=== PATIENT | male | born 1995 | race American Indian/Alaskan Native ===

== ENCOUNTER 2017-04-03 11:40 | Inpatient (IN) | payer OTHER ==
[2017-04-03 12:17] LABS: Basophils % (Auto) 0.3 % (0.0-1.8); Eosinophils % (Auto) 0.2 % (0.0-4.3); Hematocrit 51.1 % (35.5-45.6); Hemoglobin 17.3 gm/dl (11.8-15.2); Mean Corpuscular HGB Conc 34 % (32-34); Mean Corpuscular Hemoglobin 30 pg (28-32); Mean Corpuscular Volume 87 fl (84-94); Platelet Count 200 K/mm3 (140-440); Red Blood Count 5.86 M/mm3 (3.65-5.03); Red Cell Distribution Width 13.2 % (13.2-15.2); White Blood Count 8.7 K/mm3 (4.5-11.0)
--- NOTE | 2017-04-03 12:28 | XRay Report ---
Chest 2 views: History: Shortness of breath. Findings: Normal cardiomediastinal silhouette paratracheal midline. No consolidation, pneumothorax or pleural effusion. Impression: No acute cardiopulmonary findings.
--- NOTE | 2017-04-03 12:35 | Emergency Department Report ---
ED Chest Pain HPI - General Chief Complaint: Chest Pain Stated Complaint: CHEST PAIN/SOB Time Seen by Provider: 04/03/17 12:33 Source: patient Mode of arrival: Ambulatory Limitations: No Limitations - History of Present Illness Initial Comments: Patient states contrary to what is written in the triage note that he smoked a vapor one week ago. He was fine for the subsequent 4 days. 3 days ago he developed intermittent chest discomfort which she described as a pressure and shortness of breath. He denied cough or fever. He denies any chronic dyspnea on exertion. He's had no prior mention of a heart murmur nor any known medical history. He does smoke cigarettes. His mother presents with him stating that he has an uncle that had a myocardial infarction. The patient at this time states he has some slight chest pressure but no lisette shortness of breath at rest. He also states that he feels as if he needs to burp. He said some problems with insomnia for the last few days. Does not report lisette anxiety. MD Complaint: chest pain -: days(s) Onset: during rest Pain Location: substernal, left chest Pain Radiation: none Severity: mild, moderate Quality: pressure Context: other (no recent travel or surgical procedure) re: dyspnea. denies: nausea, vomting, diaphoresis, sense of impending doom Other Symptoms: denies: cough, fever, syncope Treatments Prior to Arrival: none Aspirin use within the Past 7 Days: (0) No - Related Data Allergies Allergy/AdvReac Type Severity Reaction Status Date / Time No Known Allergies Allergy Unverified 04/03/17 11:55 Heart Score - HEART Score History: Slightly suspicious EKG: Non-specific Age: < 45 Risk factors: No known risk factors Troponin: < normal limit HEART Score: 1 - Critical Actions Critical Actions: 0-3 pts:0.9-1.7%risk of adverse cardiac event.Candidate for discharge ED Review of Systems ROS: Stated complaint: CHEST PAIN/SOB Other details as noted in HPI Constitutional: denies: chills, fever Eyes: denies: eye pain, eye discharge, vision change ENT: denies: ear pain, throat pain Respiratory: shortness of breath. denies: cough, wheezing Cardiovascular: denies: chest pain, palpitations Endocrine: no symptoms reported Gastrointestinal: denies: abdominal pain, nausea, diarrhea Genitourinary: denies: urgency, dysuria Musculoskeletal: denies: back pain, joint swelling, arthralgia Skin: denies: rash, lesions Neurological: denies: headache, weakness, paresthesias Psychiatric: denies: anxiety, depression Hematological/Lymphatic: denies: easy bleeding, easy bruising ED Past Medical Hx - Past Medical History Previous Medical History?: No - Surgical History Past Surgical History?: No - Social History Smoking Status: Current Some Day Smoker Substance Use Type: None ED Physical Exam - General Limitations: No Limitations General appearance: alert, in no apparent distress - Head Head exam: Present: atraumatic, normocephalic - Eye Eye exam: Present: normal appearance, PERRL, EOMI. Absent: scleral icterus - ENT ENT exam: Present: mucous membranes moist - Neck Neck exam: Present: normal inspection - Respiratory Respiratory exam: Present: normal lung sounds bilaterally. Absent: respiratory distress - Cardiovascular Cardiovascular Exam: Present: regular rate, normal rhythm. Absent: systolic murmur, diastolic murmur, rubs, gallop - GI/Abdominal GI/Abdominal exam: Present: soft, normal bowel sounds. Absent: distended, tenderness, guarding, rebound, rigid - Rectal Rectal exam: Present: deferred - Extremities Exam Extremities exam: Present: normal inspection, full ROM, normal capillary refill. Absent: tenderness, pedal edema, joint swelling, calf tenderness - Back Exam Back exam: Present: normal inspection - Neurological Exam Neurological exam: Present: alert, oriented X3, CN II-XII intact. Absent: motor sensory deficit - Psychiatric Psychiatric exam: Present: normal affect, normal mood - Skin Skin exam: Present: warm, dry, intact, normal color. Absent: rash ED Course Vital Signs 04/03/17 04/03/17 11:56 11:59 Temperature 98.4 F Pulse Rate 84 89 Respiratory 20 Rate Blood Pressure 150/101 O2 Sat by Pulse 100 Oximetry - Reevaluation(s) Reevaluation #1: Laboratory Results - last 24 hr 04/03/17 04/03/17 04/03/17 12:01 12:01 12:48 WBC 8.7 RBC 5.86 H Hgb 17.3 H Hct 51.1 H MCV 87 MCH 30 MCHC 34 RDW 13.2 Plt Count 200 Lymph % (Auto) 19.6 [place] % (Auto) 10.0 H Eos % (Auto) 0.2 Baso % (Auto) 0.3 Lymph # 1.7 [place] # 0.9 H Eos # 0.0 Baso # 0.0 Seg Neutrophils % 69.9 Seg Neutrophils # 6.1 PT 14.3 INR 1.12 APTT 34.6 Sodium 142 Potassium 3.4 L Chloride 98.1 Carbon Dioxide 28 Anion Gap 19 BUN 6 L Creatinine 0.9 Estimated GFR > 60 BUN/Creatinine Ratio 6.66 Glucose 94 Calcium 10.0 Troponin T < 0.010 04/03/17 13:26 Reevaluation #2: Radiologist questions apical scarring versus early pneumonia. It does not appear that the patient clinically has pneumonia. His first blood pressure was elevated but other readings were within the normal range. It seemed like the patient would benefit from further evaluation to include an echocardiogram. Therefore I spoke with Dr. Lara who has decided to admit the patient for further care and evaluation. 04/03/17 17:21 GALEN score - Galen Score Age > 65: (0) No Aspirin use within the Past 7 Days: (0) No 3 or more CAD Risk Factors: (0) No 2 or more Angina events in past 24 hrs: (0) No Known CAD with more than 50% Stenosis: (0) No Elevated Cardiac Markers: (0) No ST Deviation Greater than 0.5mm: (0) No GALEN Score: 0 ED Medical Decision Making - Lab Data Result diagrams: 04/03/17 12:01 04/03/17 12:01 Laboratory Results - last 24 hr 04/03/17 12:01 WBC 8.7 RBC 5.86 H Hgb 17.3 H Hct 51.1 H MCV 87 MCH 30 MCHC 34 RDW 13.2 Plt Count 200 Lymph % (Auto) 19.6 [place] % (Auto) 10.0 H Eos % (Auto) 0.2 Baso % (Auto) 0.3 Lymph # 1.7 [place] # 0.9 H Eos # 0.0 Baso # 0.0 Seg Neutrophils % 69.9 Seg Neutrophils # 6.1 - EKG Data -: EKG Interpreted by Me EKG shows normal: sinus rhythm Rate: normal - EKG Data Interpretation: other (biatrial enlargement pulmonary disease pattern RSR in V1. Biatrial enlargement. Inferior T-wave abnormality. Nonspecific.) - Radiology Data Radiology results: report reviewed interpreted by me: Chest x-ray no acute process. CTA negative for pulmonary embolism. Positive for small apical abnormality uncertain cause. Critical care attestation.: If time is entered above; I have spent that time in minutes in the direct care of this critically ill patient, excluding procedure time. ED Disposition Clinical Impression: Abnormal EKG Chest pain Qualifiers: Chest pain type: unspecified Qualified Code(s): R07.9 - Chest pain, unspecified Dyspnea Qualifiers: Dyspnea type: unspecified Qualified Code(s): R06.00 - Dyspnea, unspecified Disposition: OP ADMIT IP TO THIS HOSP Is pt being admited?: Yes Does the pt Need Aspirin: Yes Condition: Stable Instructions: Chest Pain (ED) Referrals: PRIMARY CARE, [Primary Care Provider] - 3-5 Days Time of Disposition: 17:22
[2017-04-03 12:42] LABS: BUN/Creatinine Ratio 6.66; Blood Urea Nitrogen 6 mg/dL (9-20); Carbon Dioxide 28 mmol/L (22-30); Glucose 94 mg/dL (75-100)
[2017-04-03 12:43] LABS: Anion Gap 19 mmol/L; Chloride 98.1 mmol/L (98-107); Potassium 3.4 mmol/L (3.6-5.0); Sodium 142 mmol/L (137-145)
[2017-04-03 13:14] LABS: INR 1.12 (0.87-1.13)
[2017-04-03 13:15] LABS: Partial Thromboplastin Time 34.6 Sec. (24.2-36.6)
[2017-04-03 13:31] LABS: Alanine Aminotransferase 10 units/L (7-56); Albumin 4.8 g/dL (3.9-5); Albumin/Globulin Ratio 1.7 %; Alkaline Phosphatase 89 units/L (35-129); Total Protein 7.6 g/dL (6.3-8.2)
[2017-04-03 13:32] LABS: Bilirubin,Direct < 0.2 mg/dL (0-0.2)
[2017-04-03 14:02] LABS: Urine Drugs of Abuse Note Disclamer
[2017-04-03] MEDS ORDERED: NACL ONE (15:07)
--- NOTE | 2017-04-03 16:42 | Cat Scan Report ---
FINAL REPORT PROCEDURE: CT angiogram chest with contrast. TECHNIQUE: Computerized tomographic angiography of the chest was performed after the IV injection of iodinated nonionic contrast including image processing. The image data was postprocessed using 2-dimensional multiplanar reformatted (MPR) and 3-dimensional (MIP and/or volume rendered) techniques. HISTORY: Dyspnea, D-dimer is 4000, suspect congenital H COMPARISON: No prior studies are available for comparison. FINDINGS: The trachea and central bronchi appear normal. The thoracic aorta has a normal caliber without evidence of dissection. The pulmonary arteries enhance normally. There are no filling defects to indicate pulmonary embolism. There is no mediastinal adenopathy. The heart size is normal. There are no pleural effusions. There are some small opacities in the very tops of both lung apices. This could represent very early pneumonia or perhaps just some apical pleural scarring. The lungs are otherwise clear and well expanded. The thoracic skeleton appears intact. IMPRESSION: No evidence of pulmonary embolism. Question very early apical pneumonia versus apical scarring.
--- NOTE | 2017-04-03 18:03 | History and Physical Report ---
History of Present Illness Date of examination: 04/03/17 Date of admission: 04/03/17 17:23 Chief complaint: Chest pain off and on for 4 days History of present illness: GULKANA:21 y/o AAM with no PMH comes in for intermittent chest discomfort for past 4 to 5 days.He describes it as burping which ends in him having Chest pressure.Also associated with some SOB.No diaphoresis or palpitations .Has done Vapor and Marijuanaaaa in last one week.No fever /chills.No recent travel.Chest pain is about 4/10 and dull in character.Exacerbating factor is burping.Relieving factor none - Past Medical History Previous Medical History?: No - Surgical History Past Surgical History?: No - Social History Smoking Status: Current Some Day Smoker Substance Use Type: Marijuana use.Drug screen positive for Marijuana Review of Systems Stated complaint: CHEST PAIN/SOB Other details as noted in HPI Constitutional: denies: chills, fever Eyes: denies: eye pain, eye discharge, vision change ENT: denies: ear pain, throat pain Respiratory: shortness of breath. denies: cough, wheezing Cardiovascular: denies: chest pain, palpitations Endocrine: no symptoms reported Gastrointestinal: denies: abdominal pain, nausea, diarrhea Genitourinary: denies: urgency, dysuria Musculoskeletal: denies: back pain, joint swelling, arthralgia Skin: denies: rash, lesions Neurological: denies: headache, weakness, paresthesias Psychiatric: denies: anxiety, depression Hematological/Lymphatic: denies: easy bleeding, easy bruising Medications and Allergies Allergies Allergy/AdvReac Type Severity Reaction Status Date / Time No Known Allergies Allergy Unverified 04/03/17 11:55 Home Medications Medication Instructions Recorded Confirmed Last Taken Type No Known Home Medications [No 04/03/17 04/03/17 Unknown History Reported Home Medications] Exam - Physical Exam Narrative exam: Comfortable,No distress - Constitutional Vitals: Temp Pulse Resp BP Pulse Ox 98.4 F 89 20 150/101 100 04/03/17 11:56 04/03/17 11:59 04/03/17 11:56 04/03/17 11:56 04/03/17 11:56 General appearance: Present: no acute distress, well-nourished - EENT Eyes: Present: PERRL ENT: hearing intact, clear oral mucosa - Neck Neck: Present: supple, normal ROM - Respiratory Respiratory effort: normal Respiratory: bilateral: CTA - Cardiovascular Heart rate: 76 Rhythm: regular Heart Sounds: Present: S1 & S2. Absent: rub, click - Extremities Extremities: no ischemia, pulses intact, pulses symmetrical, No edema Peripheral Pulses: within normal limits - Abdominal General gastrointestinal: Present: soft, non-tender, non-distended, normal bowel sounds Male genitourinary: Present: normal - Rectal Rectal Exam: deferred - Integumentary Integumentary: Present: clear, warm, dry - Musculoskeletal Musculoskeletal: gait normal, strength equal bilaterally - Psychiatric Psychiatric: appropriate mood/affect, intact judgment & insight - Neurologic Neurologic: CNII-XII intact, moves all extremities - Allied Health Allied health notes reviewed: nursing, case management Results - Labs CBC & Chem 7: 04/03/17 12:01 04/03/17 17:56 Labs: Laboratory Last Values WBC 8.7 K/mm3 (4.5-11.0) 04/03/17 12:01 RBC 5.86 M/mm3 (3.65-5.03) H 04/03/17 12:01 Hgb 17.3 gm/dl (11.8-15.2) H 04/03/17 12:01 Hct 51.1 % (35.5-45.6) H 04/03/17 12:01 MCV 87 fl (84-94) 04/03/17 12:01 MCH 30 pg (28-32) 04/03/17 12:01 MCHC 34 % (32-34) 04/03/17 12:01 RDW 13.2 % (13.2-15.2) 04/03/17 12:01 Plt Count 200 K/mm3 (140-440) 04/03/17 12:01 Lymph % (Auto) 19.6 % (13.4-35.0) 04/03/17 12:01 [place] % (Auto) 10.0 % (0.0-7.3) H 04/03/17 12:01 Eos % (Auto) 0.2 % (0.0-4.3) 04/03/17 12:01 Baso % (Auto) 0.3 % (0.0-1.8) 04/03/17 12:01 Lymph # 1.7 K/mm3 (1.2-5.4) 04/03/17 12:01 [place] # 0.9 K/mm3 (0.0-0.8) H 04/03/17 12:01 Eos # 0.0 K/mm3 (0.0-0.4) 04/03/17 12:01 Baso # 0.0 K/mm3 (0.0-0.1) 04/03/17 12:01 Seg Neutrophils % 69.9 % (40.0-70.0) 04/03/17 12:01 Seg Neutrophils # 6.1 K/mm3 (1.8-7.7) 04/03/17 12:01 PT 14.3 Sec. (12.2-14.9) 04/03/17 12:48 INR 1.12 (0.87-1.13) 04/03/17 12:48 APTT 34.6 Sec. (24.2-36.6) 04/03/17 12:48 D-Dimer 3969.02 ng/mlDDU (0-234) H 04/03/17 12:48 Sodium 142 mmol/L (137-145) 04/03/17 12:01 Potassium 3.4 mmol/L (3.6-5.0) L 04/03/17 12:01 Chloride 98.1 mmol/L (98-107) 04/03/17 12:01 Carbon Dioxide 28 mmol/L (22-30) 04/03/17 12:01 Anion Gap 19 mmol/L 04/03/17 12:01 BUN 6 mg/dL (9-20) L 04/03/17 12:01 Creatinine 0.9 mg/dL (0.8-1.5) 04/03/17 12:01 Estimated GFR > 60 ml/min 04/03/17 12:01 BUN/Creatinine Ratio 6.66 % 04/03/17 12:01 Glucose 94 mg/dL (75-100) 04/03/17 12:01 Calcium 10.0 mg/dL (8.4-10.2) 04/03/17 12:01 Magnesium 1.70 mg/dL (1.7-2.3) 04/03/17 12:48 Total Bilirubin 1.00 mg/dL (0.1-1.2) 04/03/17 12:48 Direct Bilirubin < 0.2 mg/dL (0-0.2) 04/03/17 12:48 AST 20 units/L (5-40) 04/03/17 12:48 ALT 10 units/L (7-56) 04/03/17 12:48 Alkaline Phosphatase 89 units/L (35-129) 04/03/17 12:48 Troponin T < 0.010 ng/mL (0.00-0.029) 04/03/17 14:47 NT-Pro-B Natriuret Pep 5.61 pg/mL (0-450) 04/03/17 12:48 Total Protein 7.6 g/dL (6.3-8.2) 04/03/17 12:48 Albumin 4.8 g/dL (3.9-5) 04/03/17 12:48 Albumin/Globulin Ratio 1.7 % 04/03/17 12:48 Urine Opiates Screen Presumptive negative 04/03/17 13:57 Urine Methadone Screen Presumptive negative 04/03/17 13:57 Ur Barbiturates Screen Presumptive negative 04/03/17 13:57 Ur Phencyclidine Scrn Presumptive negative 04/03/17 13:57 Ur Amphetamines Screen Presumptive negative 04/03/17 13:57 U Benzodiazepines Scrn Presumptive negative 04/03/17 13:57 Urine Cocaine Screen Presumptive negative 04/03/17 13:57 U Marijuana (THC) Screen Presumptive positive 04/03/17 13:57 Drugs of Abuse Note Disclamer 04/03/17 13:57 Short CBC 04/03/17 Range/Units 12:01 WBC 8.7 (4.5-11.0) K/mm3 Hgb 17.3 H (11.8-15.2) gm/dl Hct 51.1 H (35.5-45.6) % Plt Count 200 (140-440) K/mm3 BMP 04/03/17 04/03/17 12:01 17:56 Sodium 142 138 Potassium 3.4 L 4.1 D Chloride 98.1 101.1 Carbon Dioxide 28 22 BUN 6 L 6 L Creatinine 0.9 0.6 L Glucose 94 91 Calcium 10.0 9.1 Cardiac Enzymes 04/03/17 04/03/17 04/03/17 Range/Units 12:01 14:47 17:56 Troponin T < 0.010 < 0.010 < 0.010 (0.00-0.029) ng/mL Liver Function 04/03/17 04/03/17 Range/Units 12:48 17:56 Total Bilirubin 1.00 0.20 (0.1-1.2) mg/dL Direct Bilirubin < 0.2 (0-0.2) mg/dL AST 20 13 (5-40) units/L ALT 10 14 (7-56) units/L Alkaline Phosphatase 89 52 (35-129) units/L Albumin 4.8 4.0 (3.9-5) g/dL - Imaging and Cardiology EKG: report reviewed (RVH RAH, biatrial enlargement pulmonary disease pattern RSR in V1. Biatrial enlargement. Inferior T-wave abnormality. Nonspecific.)) Chest x-ray: report reviewed (Apical scarring) CT scan - chest: report reviewed (Negative) Assessment and Plan Advance Directives: Yes (Full code) VTE prophylaxis?: Chemical Plan of care discussed with patient/family: Yes - Patient Problems (1) Chest pain Current Visit: Yes Status: Acute Qualifiers: Chest pain type: unspecified Ischemic chest pain type: I Qualified Code(s ): R07.9 - Chest pain, unspecified Plan to address problem: Patient too young and chest pain sec to burping.I am more in favor of Reflux esophagitis and burping sec to Marijuana use and vapor use.Will discharge him on Famotidine or Protonix Ordered TST. (2) Pulmonary HTN Current Visit: Yes Status: Acute Plan to address problem: EKG shows RVH and RAH.Echo ordered to r/o pul Htn.It maybe sec to thin chest wall and lead placement.will repeat EKG. (3) Marijuana use Current Visit: Yes Status: Chronic Plan to address problem: Did not Respiratory Therapist as the result was not available during history taking. (4) DVT prophylaxis Current Visit: Yes Status: Acute
[2017-04-03] MEDS ORDERED: DILAUDID IV PRN (18:05)
[2017-04-03] MEDS ORDERED: TYLENOL PO PRN (18:05)
[2017-04-03] MEDS ORDERED: MILK OF MAGNESIA PO PRN (18:05)
[2017-04-03] MEDS ORDERED: AMBIEN PO PRN (18:05)
[2017-04-03] MEDS ORDERED: DULCOLAX PR PRN (18:05)
[2017-04-03] MEDS ORDERED: PERCOCET 5/325 PO PRN (18:05)
[2017-04-03] MEDS ORDERED: ZOFRAN IV PRN (18:05)
[2017-04-03] MEDS ORDERED: D5NS 1,000 ML IV SCH (19:00)
[2017-04-03 20:44] LABS: Alanine Aminotransferase 14 units/L (7-56); Albumin/Globulin Ratio 1.1 %; Alkaline Phosphatase 52 units/L (35-129); Anion Gap 19 mmol/L; Blood Urea Nitrogen 6 mg/dL (9-20); Calcium 9.1 mg/dL (8.4-10.2); Carbon Dioxide 22 mmol/L (22-30); Chloride 101.1 mmol/L (98-107); Glucose 91 mg/dL (75-100); Potassium 4.1 mmol/L (3.6-5.0); Sodium 138 mmol/L (137-145); Total Protein 7.6 g/dL (6.3-8.2)
[2017-04-03] MEDS: PEPCID IV SCH (21:26)
[2017-04-04 05:50] VITALS: BP 118/78
[2017-04-04 08:23] LABS: Creatine Kinase 206 units/L (55-170)
[2017-04-04 08:42] LABS: Creatine Kinase MB < 1.0 ng/mL (0.0-4.0)
[2017-04-04] MEDS: PEPCID IV SCH (10:00)
--- NOTE | 2017-04-04 10:02 | Progress Note ---
Assessment and Plan Assessment and plan: 21 y/o AAM with no PMH comes in for intermittent chest discomfort for past 4 to 5 days.He describes it as burping which ends in him having Chest pressure.Also associated with some SOB CTA chest, no pulmonary embolism was seen. Apical scarring noted Chest pain -fup echo, Exercise stress test was negative -has GI symptoms including burping.I am more in favor of Reflux esophagitis and burping sec to Marijuana use and vapor use.Will discharge him on Famotidine or Protonix Ordered TST. H pylori IgG Tachycardia -obtain 12 lead EKG Pulmonary HTN? Current Visit: Yes Status: Acute Plan to address problem: EKG shows RVH and RAH.Echo ordered to r/o pul Htn.It maybe sec to thin chest wall and lead placement.will repeat EKG. Marijuana use/Tobacco abuse Patient was counseled, nicotine patch is offered Hypokalemia Repleted and normalized. Elevated d-dimer May be due to tobacco and marijuana abuse, CTA of his chest was negative for PE. Doppler neg for DVT DVT prophylaxis Current Visit: Yes Status: Acute Hospitalist Physical - Constitutional Vitals: Temp Pulse Resp BP Pulse Ox 98.3 F 85 18 118/78 97 04/04/17 04:00 04/04/17 04:00 04/04/17 04:00 04/04/17 04:00 04/04/17 04:00 General appearance: Present: no acute distress, well-nourished Results - Labs CBC & Chem 7: 04/03/17 12:01 04/03/17 17:56 Labs: Laboratory Last Values WBC 8.7 K/mm3 (4.5-11.0) 04/03/17 12:01 RBC 5.86 M/mm3 (3.65-5.03) H 04/03/17 12:01 Hgb 17.3 gm/dl (11.8-15.2) H 04/03/17 12:01 Hct 51.1 % (35.5-45.6) H 04/03/17 12:01 MCV 87 fl (84-94) 04/03/17 12:01 MCH 30 pg (28-32) 04/03/17 12:01 MCHC 34 % (32-34) 04/03/17 12:01 RDW 13.2 % (13.2-15.2) 04/03/17 12:01 Plt Count 200 K/mm3 (140-440) 04/03/17 12:01 Lymph % (Auto) 19.6 % (13.4-35.0) 04/03/17 12:01 [place] % (Auto) 10.0 % (0.0-7.3) H 04/03/17 12:01 Eos % (Auto) 0.2 % (0.0-4.3) 04/03/17 12:01 Baso % (Auto) 0.3 % (0.0-1.8) 04/03/17 12:01 Lymph # 1.7 K/mm3 (1.2-5.4) 04/03/17 12:01 [place] # 0.9 K/mm3 (0.0-0.8) H 04/03/17 12:01 Eos # 0.0 K/mm3 (0.0-0.4) 04/03/17 12:01 Baso # 0.0 K/mm3 (0.0-0.1) 04/03/17 12:01 Seg Neutrophils % 69.9 % (40.0-70.0) 04/03/17 12:01 Seg Neutrophils # 6.1 K/mm3 (1.8-7.7) 04/03/17 12:01 PT 14.3 Sec. (12.2-14.9) 04/03/17 12:48 INR 1.12 (0.87-1.13) 04/03/17 12:48 APTT 34.6 Sec. (24.2-36.6) 04/03/17 12:48 D-Dimer 3969.02 ng/mlDDU (0-234) H 04/03/17 12:48 Sodium 138 mmol/L (137-145) 04/03/17 17:56 Potassium 4.1 mmol/L (3.6-5.0) D 04/03/17 17:56 Chloride 101.1 mmol/L (98-107) 04/03/17 17:56 Carbon Dioxide 22 mmol/L (22-30) 04/03/17 17:56 Anion Gap 19 mmol/L 04/03/17 17:56 BUN 6 mg/dL (9-20) L 04/03/17 17:56 Creatinine 0.6 mg/dL (0.8-1.5) L 04/03/17 17:56 Estimated GFR > 60 ml/min 04/03/17 17:56 BUN/Creatinine Ratio 10.00 % 04/03/17 17:56 Glucose 91 mg/dL (75-100) 04/03/17 17:56 Calcium 9.1 mg/dL (8.4-10.2) 04/03/17 17:56 Magnesium 1.70 mg/dL (1.7-2.3) 04/03/17 12:48 Total Bilirubin 0.20 mg/dL (0.1-1.2) 04/03/17 17:56 Direct Bilirubin < 0.2 mg/dL (0-0.2) 04/03/17 12:48 AST 13 units/L (5-40) 04/03/17 17:56 ALT 14 units/L (7-56) 04/03/17 17:56 Alkaline Phosphatase 52 units/L (35-129) 04/03/17 17:56 Total Creatine Kinase 206 units/L (55-170) H 04/04/17 07:38 CK-MB (CK-2) < 1.0 ng/mL (0.0-4.0) 04/04/17 07:38 CK-MB (CK-2) Rel Index 0.4 (0-4) 04/04/17 07:38 Troponin T < 0.010 ng/mL (0.00-0.029) 04/04/17 07:38 NT-Pro-B Natriuret Pep 5.61 pg/mL (0-450) 04/03/17 12:48 Total Protein 7.6 g/dL (6.3-8.2) 04/03/17 17:56 Albumin 4.0 g/dL (3.9-5) 04/03/17 17:56 Albumin/Globulin Ratio 1.1 % 04/03/17 17:56 Urine Opiates Screen Presumptive negative 04/03/17 13:57 Urine Methadone Screen Presumptive negative 04/03/17 13:57 Ur Barbiturates Screen Presumptive negative 04/03/17 13:57 Ur Phencyclidine Scrn Presumptive negative 04/03/17 13:57 Ur Amphetamines Screen Presumptive negative 04/03/17 13:57 U Benzodiazepines Scrn Presumptive negative 04/03/17 13:57 Urine Cocaine Screen Presumptive negative 04/03/17 13:57 U Marijuana (THC) Screen Presumptive positive 04/03/17 13:57 Drugs of Abuse Note Disclamer 04/03/17 13:57
[2017-04-04] MEDS ORDERED: HABITROL TD PRN (10:04)
[2017-04-04 13:20] LABS: Creatine Kinase 237 units/L (55-170)
[2017-04-04 13:21] LABS: Creatine Kinase MB < 1.0 ng/mL (0.0-4.0)
--- NOTE | 2017-04-04 15:50 | Discharge Summary ---
Providers - Providers Date of Admission: 04/03/17 17:23 Attending physician: GATO CROSS MD Primary care physician: DISPLAY CARD WRITER Hospitalization Condition: Stable Hospital course: 21 y/o AAM with no PMH comes in for intermittent chest discomfort for past 4 to 5 days.He describes it as burping which ends in him having Chest pressure. This patient admitted to tobacco use, marijuana abuse and using of nicotine vapors. ACS was ruled out, he went on to have a CT of his chest that was negative for pulmonary embolism, venous Dopplers were negative for DVT. He also went on to have an exercise stress test that was negative. His chest pain was most likely due to GERD differential he was started on a PPI. Patient was counseled about cessation of tobacco, nicotine vapors and marijuana. Most likely exacerbating his symptoms. He verbalized understanding. He did have some sinus tachycardia which is most likely due to pain, it resolved without any specific intervention. He did have low potassium levels every repleted. Discharge diagnoses Chest pain due to GERD Sinus tachycardia Marijuana abuse Tobacco abuse Nicotine abuse Hypokalemia Disposition: DC-01 TO HOME OR SELFCARE Time spent for discharge: 33 minutes Core Measure Documentation - Palliative Care Palliative Care/ Comfort Measures: Not Applicable - Core Measures Any of the following diagnoses?: none Exam - Constitutional Vitals: Temp Pulse Resp BP Pulse Ox 98.3 F 85 18 118/78 98 04/04/17 04:00 04/04/17 04:00 04/04/17 04:00 04/04/17 04:00 04/04/17 13:31 General appearance: Present: no acute distress, well-nourished - EENT Eyes: Present: PERRL ENT: hearing intact, clear oral mucosa - Neck Neck: Present: supple, normal ROM - Respiratory Respiratory effort: normal Respiratory: bilateral: CTA - Cardiovascular Heart Sounds: Present: S1 & S2. Absent: rub, click - Extremities Extremities: pulses symmetrical, No edema Peripheral Pulses: within normal limits - Abdominal General gastrointestinal: Present: soft, non-tender, non-distended, normal bowel sounds Male genitourinary: Present: normal - Integumentary Integumentary: Present: clear, warm, dry - Musculoskeletal Musculoskeletal: gait normal, strength equal bilaterally - Psychiatric Psychiatric: appropriate mood/affect, intact judgment & insight - Neurologic Neurologic: CNII-XII intact, moves all extremities Plan Follow up with: PRIMARY CARE, [Primary Care Provider] - 3-5 Days Prescriptions: Pantoprazole [Protonix TAB] 20 mg PO QDAY #30 tablet.
--- NOTE | 2017-04-05 16:01 | Vascular Lab Report ---
LOWER EXTREMITY VENOUS DUPLEX: REASON FOR EXAM: Leg edema/d-dimer elevation. COMMENTS ON THE RIGHT: All veins visualized are freely compressible without evidence of internal echogenicity. Flow is spontaneous and phasic throughout. COMMENTS ON THE LEFT: All veins visualized are freely compressible without evidence of internal echogenicity. Flow is spontaneous and phasic throughout. IMPRESSION: No evidence of acute or chronic deep venous thrombosis in either lower extremity.
== END 2017-04-04 17:47 | disposition home or self-care (01) | DRG 392 ==
LOC: ED 11:40 → 4A 17:23
PROVIDERS: ADMIT Internal Medicine; ATTEND Internal Medicine
DX: K21.9 Gastro-esophageal reflux disease without esophagitis (principal); F17.210 Nicotine dependence, cigarettes, uncomplicated; R06.00 Dyspnea, unspecified; F12.90 Cannabis use, unspecified, uncomplicated; I27.2 Other secondary pulmonary hypertension; R00.0 Tachycardia, unspecified; E87.6 Hypokalemia
CPT/HCPCS: 36415; 71020; 71275; 80048; 80053; 80074; 80307; 82550; 82553; 83735; 83880; 84484; 85025; 85379; 85610; 85730; 93005; 93010; 93017; 93306; 93970; 96374; 99285; 99406; Q9967

== ENCOUNTER 2018-11-08 07:24 | Emergency (ER) | payer OTHER ==
[2018-11-08 07:32] VITALS: BP 135/91
[2018-11-08] MEDS ORDERED: TORADOL IM ONE (08:08)
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
== END 2018-11-08 09:03 | disposition home or self-care (01) ==
LOC: ED 07:24
DX: M79.18 Myalgia, other site (principal); R51 Headache; G89.29 Other chronic pain
CPT/HCPCS: 71101; 72170; 96372; 99283; J1885